=== PATIENT | female | born 1960 | race Caucasian/White ===

== ENCOUNTER → 2016-11-30 | Outpatient (CLI) | payer BC ==
[~2016-11-30] MED LIST: KETOROLAC 10MG10 MG PO; PERCOCET 5/3251 EACH PO
--- NOTE | 2016-12-02 11:32 | RADIOLOGY REPORT PS360 ---
DIG MAMM-SCREEN BERNIE W/CAD CAD Screening COMPARISON: Digital mammograms 11/25/2015 and 11/22/2014 INDICATION: There is no personal or family history of breast cancer. The patient is on Premarin. TECHNIQUE: Standard CC and MLO images were obtained. R2 CAD reviewed. FINDINGS: Moderate scattered diffuse fibroglandular densities are seen throughout both breasts. There is a possible small asymmetric density inner quadrant left breast at approximately the 9:00 position which was faintly seen previously but appears slightly more prominent on today's exam. This likely is a summation shadow but recommend patient return for spot compression views for better evaluation and possibly ultrasound if this proves to be a true lesion. There are no suspicious microcalcifications. IMPRESSION: Moderate breast density with possible asymmetric density left breast and recommend the patient return for additional imaging BI-RADS CATEGORY: 0_Incomplete: Need additional imaging RECOMMENDED FOLLOWUP: ADD ADDITIONAL IMAGING (A letter has been sent to the patient regarding results of the study.)
== END ==
LOC: RAD 08:19
DX: Z12.31 Encounter for screening mammogram for malignant neoplasm of breast (principal)
CPT/HCPCS: G0202

== ENCOUNTER → 2017-08-04 | Outpatient (CLI) | payer BC ==
--- NOTE | 2017-08-05 15:17 | RADIOLOGY REPORT PS360 ---
DIG DIG MAMM-DX UNI LT W/AVS W/CAD Ordering Physician: Sushant Castillo MD Patient Age: 57 years Female COMPARISON: Previous studies from December 2016 mammogram and ultrasound on left. Also November 2016 and 2015 bilateral screening mammogram studies INDICATION: Follow-up nodular density left breast TECHNIQUE: MLO cc view with spot MLO and cc views today FINDINGS: The small 5.2 mm nodular density at the deep left breast just medial to mid axis is again seen and is not changed appreciably since prior studies from November and December 2016. Ultrasound at that time in December showed a small 5 mm cyst which likely account for this density, at deep breast 10 o'clock position. Again its interval stability follow-up bilateral mammogram in 6 months recommended. IMPRESSION: 1. Stable small nodular density at the deep medial left breast. Most likely small cyst Patient may resume annual schedule with bilateral mammogram in 6 months BI-RADS CATEGORY: 2_Benign RECOMMENDED FOLLOWUP: 6M 6MONTH FOLLOW-UP (A letter has been sent to the patient regarding results of the study.)
== END ==
LOC: RAD 12:46
DX: R92.8 Other abnormal and inconclusive findings on diagnostic imaging of breast (principal)
CPT/HCPCS: G0206-LT